=== PATIENT | female | born 1930 | race Caucasian/White ===

== ENCOUNTER 2022-04-06 14:10 | Inpatient (IN) ==
[2022-04-06] MEDS ORDERED: Ketorolac 30 MG/ML VIAL IVP ONE (15:33)
[2022-04-06] MEDS ORDERED: Ondansetron 4 MG/2 ML VIAL IVP ONE (15:33)
[2022-04-06] MEDS ORDERED: Lidocaine 1% 20 ML MDV INFILT ONE (16:25)
[2022-04-06] MEDS ORDERED: Naloxone 0.4 MG/ML INJ IVP PRN (20:26)
[2022-04-06] MEDS ORDERED: Ondansetron 4 MG/2 ML VIAL IVP PRN (20:26)
[2022-04-06] MEDS ORDERED: Acetaminophen 325 MG TABLET PO PRN (20:26)
[2022-04-06] MEDS: 0.9 % Sodium Chloride 1,000 ML IVC SCH (20:42)
[2022-04-06] MEDS ORDERED: *HR* LORazepam 0.5 MG TABLET PO PRN (21:07)
[2022-04-06] MEDS ORDERED: Gabapentin 100 MG CAPSULE PO PRN (21:07)
[2022-04-06 21:09] LABS: Basophils # 0.1 K/mcL (0.0-0.2); Basophils % 0.5 %; Eosinophils % 0.1 %; Hematocrit 39.8 % (35.3-44.9); Hemoglobin 12.8 g/dL (11.5-15.4); Immature Granulocytes % 0.4 % (0-4); Lymphocytes # 1.8 K/mcL (0.6-4.6); Lymphocytes % 17.7 %; Mean Corpuscular HGB Conc 32.2 g/dL (31.6-35.5); Mean Corpuscular Hemoglobin 30.5 pg (28.0-33.3); Mean Platelet Volume 9.8 fL (9.4-12.4); Monocytes # 0.5 K/mcL (0.0-1.3); Monocytes % 5.2 %; Neutrophils # 7.7 K/mcL (1.6-8.9); Platelet Count 225 K/mcL (140-400); Red Blood Count 4.19 M/mcL (3.82-4.97); Red Cell Distribution Width 12.9 % (11.5-14.5); Segmented Neutrophils % 76.1 %; White Blood Count 10.1 K/mcL (4.3-11.1)
[2022-04-06 21:25] LABS: Alanine Aminotransferase 30 Units/L (7-52); Albumin 3.9 g/dL (3.5-5.7); Albumin/Globulin Ratio 1.4 (1.1-2.2); Alkaline Phosphatase 76 Units/L (34-104); Aspartate Amino Transferase 31 Units/L (13-39); BUN/Creatinine Ratio 29 (6-26); Bilirubin,Total 0.5 mg/dL (0.3-1.0); Blood Urea Nitrogen 12 mg/dL (8-23); Calcium 8.9 mg/dL (8.6-10.3); Carbon Dioxide 26 mEq/L (23-29); Chloride 106 mEq/L (98-107); Globulin 2.7 g/dL (2.4-3.5); Glucose 115 mg/dL (70-105); Osmolality,Calculated 291 (280-300); Potassium 3.5 mEq/L (3.5-5.1); Sodium 140 mEq/L (136-145); Total Protein 6.6 g/dL (6.4-8.9)
[2022-04-06 21:27] LABS: % Iron Saturation 8 % (15-50); Iron 36 mcg/dL (50-170); Transferrin 305 mg/dL (203-362)
[2022-04-06 21:28] LABS: Troponin I < 0.03 ng/mL (< 0.04)
[2022-04-06 21:31] LABS: Activated Partial Thrombo Time 32.6 Seconds (26.0-36.0); INR 1.1; Prothrombin Time 12.6 Seconds (9.4-12.1)
[2022-04-06 21:41] LABS: Thyroid Stimulating Hormone 0.257 mcIU/mL (0.340-5.600)
[2022-04-06 21:47] LABS: Ferritin 49 ng/mL (10-120)
[2022-04-06 21:53] LABS: Folate > 22.3 ng/mL (3.0-16.0); Vitamin B12 352 pg/mL (250-1100)
[2022-04-07] MEDS: *HR* HYDROcodone/Acet 5/325 mg TABLET PO PRN ×2 (05:47)
[2022-04-07] MEDS: 0.9 % Sodium Chloride 1,000 ML IVC SCH (05:47)
[2022-04-07 06:36] LABS: Hemoglobin 9.3 g/dL (11.5-15.4); Mean Corpuscular Hemoglobin 30.1 pg (28.0-33.3); Mean Corpuscular Volume 97.1 fL (83.0-100.0); Mean Platelet Volume 9.9 fL (9.4-12.4); Platelet Count 154 K/mcL (140-400); Red Blood Count 3.09 M/mcL (3.82-4.97); White Blood Count 5.5 K/mcL (4.3-11.1)
[2022-04-07 06:57] LABS: BUN/Creatinine Ratio 42 (6-26); Blood Urea Nitrogen 13 mg/dL (8-23); Calcium 6.8 mg/dL (8.6-10.3); Carbon Dioxide 22 mEq/L (23-29); Chloride 116 mEq/L (98-107); Chol/HDL Ratio 2.3 (0-4.9); Cholesterol 92 mg/dL (< 200); Glucose 87 mg/dL (70-105); HDL Cholesterol 40 mg/dL (40-59); LDL Cholesterol,Calculated 30 mg/dL (< 100); Osmolality,Calculated 295 (280-300); Sodium 143 mEq/L (136-145); Triglycerides 109 mg/dL (< 150)
[2022-04-07] MEDS ORDERED: Multivit/Ca/Min/Fe/FA 1 TAB TABLET PO SCH (09:00)
[2022-04-07] MEDS ORDERED: Primidone 50 MG TABLET PO SCH (09:00)
[2022-04-07] MEDS ORDERED: ROPIVACAINE/PF/NS 0.25% 1 EACH SYRINGE INTRAART ONE (13:46)
[2022-04-07] MEDS ORDERED: Famotidine 20 MG/2 ML VIAL IVP ONE ×2 (16:00→18:45)
[2022-04-07] MEDS ORDERED: Acetaminophen IV 1,000 MG/100 ML BAG IVPB ONE (16:00)
[2022-04-07] MEDS ORDERED: *HR* Midazolam HCl 2 MG/2 ML VIAL ONE (16:06)
[2022-04-07] MEDS ORDERED: *HR* FentaNYL (PF) 100 MCG/2 ML VIAL ONE (16:07)
[2022-04-07] MEDS ORDERED: *HR* Propofol 200 MG/20 ML VIAL IVP ONE (16:08)
[2022-04-07] MEDS ORDERED: Bupivacaine/EPI 1:200k 0.25% 50 ML VIAL ONE (16:30)
[2022-04-07] MEDS ORDERED: Lidocaine -MPF 2% 5 ML VIAL ONE (16:49)
[2022-04-07] MEDS ORDERED: Lacri-Lube 3.5 GM TUBE ONE (16:54)
[2022-04-07] MEDS ORDERED: Ondansetron 4 MG/2 ML VIAL ONE (16:57)
[2022-04-07] MEDS ORDERED: EPHEDrine 50 MG/ML VIAL ONE (17:14)
[2022-04-07] MEDS ORDERED: Ketorolac 30 MG/ML VIAL ONE (17:29)
[2022-04-07] MEDS ORDERED: *HR* Magnesium Sulfate 1 GM/2 ML VIAL ONE (17:33)
[2022-04-07] MEDS ORDERED: Naloxone 0.4 MG/ML INJ IVP PRN (18:45)
[2022-04-07] MEDS ORDERED: Ondansetron 4 MG/2 ML VIAL IVP PRN (18:45)
[2022-04-07] MEDS ORDERED: *HR* HYDROcodone/Acet 5/325 mg TABLET PO PRN (18:45)
[2022-04-07] MEDS ORDERED: Gabapentin 100 MG CAPSULE PO PRN (18:45)
[2022-04-07] MEDS: *HR* LORazepam 0.5 MG TABLET PO PRN (20:46)
[2022-04-07] MEDS: Acetaminophen 325 MG TABLET PO PRN (20:46)
[2022-04-07] MEDS: Primidone 50 MG TABLET PO SCH (20:46)
[2022-04-08] MEDS ORDERED: ceFAZolin 2,000 MG in 0.9 % Sodium Chloride 100 ML IVPB SCH
[2022-04-08] MEDS: CeFAZolin 2,000 MG/120 ML BAG IVPB SCH ×4 (01:06→23:43)
[2022-04-08] MEDS: Acetaminophen 325 MG TABLET PO PRN ×2 (04:04→21:10)
[2022-04-08 07:08] LABS: Hematocrit 31.4 % (35.3-44.9); Hemoglobin 9.8 g/dL (11.5-15.4); Mean Corpuscular HGB Conc 31.2 g/dL (31.6-35.5); Mean Corpuscular Hemoglobin 29.9 pg (28.0-33.3); Mean Corpuscular Volume 95.7 fL (83.0-100.0); Mean Platelet Volume 9.9 fL (9.4-12.4); Platelet Count 176 K/mcL (140-400); Red Blood Count 3.28 M/mcL (3.82-4.97); Red Cell Distribution Width 12.8 % (11.5-14.5); White Blood Count 7.4 K/mcL (4.3-11.1)
[2022-04-08 07:29] LABS: BUN/Creatinine Ratio 22 (6-26); Blood Urea Nitrogen 7 mg/dL (8-23); Carbon Dioxide 26 mEq/L (23-29); Chloride 107 mEq/L (98-107); Glucose 90 mg/dL (70-105); Osmolality,Calculated 282 (280-300); Phosphorous 3.3 mg/dL (2.7-4.5); Potassium 3.6 mEq/L (3.5-5.1); Sodium 137 mEq/L (136-145)
[2022-04-08] MEDS: Multivit/Ca/Min/Fe/FA 1 TAB TABLET PO SCH (08:52)
[2022-04-08] MEDS: Primidone 50 MG TABLET PO SCH ×2 (08:53→21:09)
[2022-04-08] MEDS: *HR* LORazepam 0.5 MG TABLET PO PRN (21:10)
[2022-04-09] MEDS: CeFAZolin 2,000 MG/120 ML BAG IVPB SCH ×2 (08:47→15:24)
[2022-04-09] MEDS: Multivit/Ca/Min/Fe/FA 1 TAB TABLET PO SCH (08:47)
[2022-04-09] MEDS: Primidone 50 MG TABLET PO SCH ×2 (08:47→21:40)
[2022-04-09 09:54] LABS: Basophils % 0.4 %; Eosinophils # 0.1 K/mcL (0.0-0.6); Eosinophils % 0.6 %; Hematocrit 32.4 % (35.3-44.9); Hemoglobin 10.2 g/dL (11.5-15.4); Immature Granulocytes % 0.7 % (0-4); Lymphocytes # 1.4 K/mcL (0.6-4.6); Lymphocytes % 16.8 %; Mean Corpuscular HGB Conc 31.5 g/dL (31.6-35.5); Mean Corpuscular Hemoglobin 29.9 pg (28.0-33.3); Mean Platelet Volume 10.2 fL (9.4-12.4); Monocytes # 0.5 K/mcL (0.0-1.3); Monocytes % 5.4 %; Neutrophils # 6.4 K/mcL (1.6-8.9); Platelet Count 220 K/mcL (140-400); Red Blood Count 3.41 M/mcL (3.82-4.97); Segmented Neutrophils % 76.1 %; White Blood Count 8.4 K/mcL (4.3-11.1)
[2022-04-09 10:09] LABS: BUN/Creatinine Ratio 18 (6-26); Blood Urea Nitrogen 6 mg/dL (8-23); Calcium 8.3 mg/dL (8.6-10.3); Carbon Dioxide 27 mEq/L (23-29); Chloride 106 mEq/L (98-107); Glucose 162 mg/dL (70-105); Magnesium 1.8 mg/dL (1.6-2.6); Osmolality,Calculated 287 (280-300); Phosphorous 2.4 mg/dL (2.7-4.5); Potassium 3.2 mEq/L (3.5-5.1); Sodium 138 mEq/L (136-145)
[2022-04-09] MEDS ORDERED: Potassium Phosphate 44 MEQ in 0.9 % Sodium Chloride 250 ML IVPB ONE (14:14)
[2022-04-09] MEDS: *HR* LORazepam 0.5 MG TABLET PO PRN (21:40)
[2022-04-09] MEDS: Acetaminophen 325 MG TABLET PO PRN (21:40)
[2022-04-10] MEDS: CeFAZolin 2,000 MG/120 ML BAG IVPB SCH ×2 (00:07→08:59)
[2022-04-10 03:42] VITALS: O2SAT 94
[2022-04-10 07:01] LABS: Hemoglobin 10.6 g/dL (11.5-15.4)
[2022-04-10 07:52] LABS: BUN/Creatinine Ratio 19 (6-26); Blood Urea Nitrogen 5 mg/dL (8-23); Calcium 8.3 mg/dL (8.6-10.3); Carbon Dioxide 27 mEq/L (23-29); Chloride 107 mEq/L (98-107); Glucose 111 mg/dL (70-105); Magnesium 1.9 mg/dL (1.6-2.6); Osmolality,Calculated 288 (280-300); Phosphorous 3.1 mg/dL (2.7-4.5); Potassium 3.3 mEq/L (3.5-5.1); Sodium 140 mEq/L (136-145)
[2022-04-10] MEDS: Primidone 50 MG TABLET PO SCH (08:58)
[2022-04-10] MEDS: Multivit/Ca/Min/Fe/FA 1 TAB TABLET PO SCH (08:58)
[2022-04-10 11:34] VITALS: BP 179/71; PULSE 77; TEMP 98.8
[2022-04-10 13:26] LABS: Influenza A PCR Negative (Negative); Influenza B PCR Negative (Negative); Resp. Syncytial Virus PCR Negative (Negative)
[2022-04-10 13:27] LABS: SARS-CoV-2 by PCR (In House) Negative (Negative)
== END 2022-04-10 16:26 | DRG 493 ==
LOC: EMEROOARM 14:10 → 4WAOSI 14:10 → SUATTDRO 18:24 → 4WAOSI 19:58
PROVIDERS: ADMIT Student in an Organized Health Care Education/Training Program; ATTEND Internal Medicine